=== PATIENT | male | born 2000 | race Caucasian/White ===

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

== ENCOUNTER 2022-01-27 19:49 | Emergency (ER) | payer MEDICAID ==
[~2022-01-27] VITALS: Ht 190 cm; Wt 127.0 kg
[~2022-01-27 19:49] MED LIST changes: +CLIN-144 PO; -CLIN300C11 PO
--- NOTE | 2022-01-27 20:04 | ED Upper Extremity ---
General Stated Complaint: CUT RIGHT MIDDLE FINGER Source: patient Exam Limitations: no limitations (LIO MARTINEZ) History of Present Illness Date Seen by Provider: Jan 27, 2022 Time Seen by Provider: 20:02 Initial Comments Patient is a 21-year-old male who presents ED with laceration to his right middle finger. This occurred an hour ago while picking up a bag of trash. [place] something sharp resulted in 1 cm laceration on the palmar side of the right middle finger. Normal active range of motion. Up-to-date on his tetanus. Denies of any decreased range of motion, numbness and tingling, fever, chills, cough or chest pain (LIO MARTINEZ) Allergies and Home Medications Allergies Coded Allergies: Penicillins (Unverified Allergy, Unknown, 11/28/18) Patient Home Medication List Home Medication List Reviewed: Yes (LIO MARTINEZ) Clindamycin HCl (Clindamycin HCl) 300 Mg Capsule, 300 MG PO QID Prescribed by: CRISELDA AGEE on 01/19/19 2235 Ibuprofen (Ibu) 600 Mg Tablet, 600 MG PO Q6H PRN for PAIN-MILD Prescribed by: KUN OCAMPO on 12/01/18 1007 Oxcarbazepine (Trileptal) 600 Mg Tablet, 600 MG PO BID, (Reported) Entered as Reported by: NAVID DIAZ on 11/28/18 0853 Review of Systems Constitutional: No chills, No diaphoresis, No malaise, No weakness EENTM: No ear pain, No blurred vision, No double vision Respiratory: No cough, No dyspnea on exertion, No short of breath Cardiovascular: No chest pain, No edema Gastrointestinal: No abdominal pain, No diarrhea, No nausea, No vomiting Genitourinary: No decreased output, No discharge Musculoskeletal: No back pain, No joint pain Skin: change in color, other (figner laceration) (LIO MARTINEZ) All Other Systems Reviewed Negative Unless Noted: Yes (LIO MARTINEZ) Past Dzacsay-Jyfdhn-Zexnec Hx Immunizations Up To Date PED Vaccines UTD: Yes (LIO MARTINEZ) Seasonal Allergies Seasonal Allergies: No (LIO MARTINEZ) Past Medical History Surgeries: Yes Gallbladder Respiratory: No Cardiac: No Neurological: No Reproductive Disorders: No Sexually Transmitted Disease: No HIV/AIDS: No Genitourinary: No Gastrointestinal: No Musculoskeletal: No Endocrine: No HEENT: No Cancer: No Psychosocial: Yes ADD/ADHD, ODD Integumentary: No Eczema Blood Disorders: No Adverse Reaction/Blood Tranf: No (LIO MARTINEZ) Family Medical History Heart Disease, Hypertension (LIO MARTINEZ) Physical Exam Vital Signs Vital Signs - First Documented 01/27/22 20:02 Temp 37.0 Pulse 88 Resp 20 B/P (MAP) 141/95 (110) Pulse Ox 98 O2 Delivery Room Air (PADMINI,LUIS K DO) Vital Signs Capillary Refill : (LIO MARTINEZ) Height, Weight, BMI Height: 6'2.00" Weight: 294lbs. 10.0oz. 133.827152oy; 40.00 BMI Method:Stated General Appearance: WD/WN, no apparent distress HEENT: PERRL/EOMI, normal ENT inspection, TMs normal, pharynx normal Neck: non-tender, full range of motion, supple, normal inspection Cardiovascular: regular rate, rhythm, no edema, no gallop, no JVD Respiratory: chest non-tender, lungs clear, normal breath sounds Gastrointestinal: normal bowel sounds, non tender, soft, no organomegaly Back: normal inspection, no CVA tenderness, no vertebral tenderness Shoulder: normal inspection Elbow/Forearm: normal inspection, non-tender, no evidence of injury Wrist: Yes normal inspection, Yes non-tender, Yes no evidence of injury, Yes normal ROM Hand: Right, laceration (1 cm laceration on the dorsum side of the right middle finger. 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, no motor/sensory deficits, alert, normal mood/affect, oriented x 3 Skin: other (1 cm laceration to the right dorsum middle finger.) (LIO MARTINEZ) Procedures/Interventions Wound Location: Upper Extremities Other Wound Location right middle finger Wound Length (cm): 1 Wound's Depth, Shape: superficial, sub Q Wound Explored: clean Irrigated w/ Saline (ccs): 200 Betadine Prep?: Yes Anesthesia: 1% Lidocaine Volume Anesthetic (ccs): 2 Suture: Ethlion Suture Size: 5-0 Number of Sutures: 4 Layer Closure?: 1 Number Deep Layer Sutures: 1 (LIO MARTINEZ) Progress/Results/Core Measures Results/Orders Vital Signs/I&O 01/27/22 01/27/22 20:02 20:22 Temp 37.0 37.0 Pulse 88 88 Resp 20 20 B/P (MAP) 141/95 (110) 141/95 Pulse Ox 98 98 O2 Delivery Room Air Room Air (LUIS WASHINGTON DO) Departure Communication (PCP) Recommend removing sutures in 10 days. 4 Ethilon sutures were placed in ED. Procedure documented note. Up-to-date on his tetanus. Normal active range of motion without any tendon or muscular involvement. Discussed wound care with Neosporin topical daily. Provided splint for comfort. If any worsening symptoms such as redness, swelling to return back to ED. (LIO MARTINEZ) Impression Primary Impression: Finger laceration Disposition: 01 HOME, SELF-CARE Condition: Stable Departure-Patient Inst. Decision time for Depature: 20:17 (LIO MARTINEZ) Referrals: [facility] (PCP/Family) Primary Care Physician Patient Instructions: Laceration Repair With Stitches ED Add. Discharge Instructions: Remove sutures in 10 days. Recommend Neosporin topical to prevent infection. Tylenol ibuprofen for pain. ATTENDING PHYSICIAN NOTE: I WAS PHYSICALLY PRESENT ER PHYSICIAN, BUT I WAS NOT INVOLVED IN ANY DECISION MAKING OR ANY CARE OF THIS PT, AND I AM NOT COLLABORATING PHYSICIAN. (LUIS WASHINGTON DO) LIO MARTINEZ Jan 27, 2022 20:04 LUIS WASHINGTON DO Jan 28, 2022 02:05
[2022-01-27 20:22] VITALS: BP 141/95
== END 2022-01-27 20:23 | disposition home or self-care (01) ==
LOC: EDUNIT# 19:49 → ER 19:52
DX: S61.212A Laceration without foreign body of right middle finger without damage to nail, initial encounter (principal); W26.9XXA Contact with unspecified sharp object(s), initial encounter
CPT/HCPCS: 99282

== ENCOUNTER 2022-02-09 10:55 | Emergency (ER) | payer MEDICAID | END 2022-02-09 11:41 | disposition home or self-care (01) | LOC: EDUNIT# 10:55 → ER 10:56 | DX: Z48.02 Encounter for removal of sutures (principal) ==

== ENCOUNTER 2022-12-23 19:30 | Emergency (ER) | payer MEDICAID ==
[~2022-12-23] VITALS: Ht 193 cm; Wt 131.5 kg
[2022-12-23] MEDS ORDERED: IBUPROFEN 800 MG (MOTRIN) TAB PO ONE (19:45)
[2022-12-23] MEDS ORDERED: LACTATED RINGERS 1,000 ML IV SCH ×2 (19:45→20:45)
[2022-12-23 19:52] LABS: BASOPHILS # (AUTO) 0.1 10^3/uL (0.0-0.1); BASOPHILS % (AUTO) 1 % (0-10); EOSINOPHILS # (AUTO) 0.3 10^3/uL (0.0-0.3); EOSINOPHILS % (AUTO) 3 % (0-10); HEMATOCRIT 49 % (40-54); HEMOGLOBIN 16.6 g/dL (13.3-17.7); LYMPHOCYTES % (AUTO) 10 % (12-44); MEAN CORPUSCULAR HEMOGLOBIN 28 pg (25-34); MEAN CORPUSCULAR HGB CONC 34 g/dL (32-36); MEAN CORPUSCULAR VOLUME 82 fL (80-99); MEAN PLATELET VOLUME 9.1 fL (9.0-12.2); MONOCYTES # (AUTO) 1.1 10^3/uL (0.0-1.0); MONOCYTES % (AUTO) 10 % (0-12); NEUTROPHILS # (AUTO) 8.1 10^3/uL (1.8-7.8); NEUTROPHILS % (AUTO) 76 % (42-75); PLATELET COUNT 301 10^3/uL (130-400); WHITE BLOOD COUNT 10.6 10^3/uL (4.3-11.0)
[2022-12-23 20:04] LABS: CLARITY,URINE CLEAR; COLOR,URINE YELLOW; GLUCOSE, URINE (UA) NEGATIVE (NEGATIVE); KETONES,URINE TRACE (NEGATIVE); LEUKOCYTE ESTERASE ,URINE 1+ (NEGATIVE); NITRITE,URINE NEGATIVE (NEGATIVE); PROTEIN,URINE 1+ (NEGATIVE)
[2022-12-23 20:05] LABS: BILIRUBIN,URINE 1+ (NEGATIVE)
[2022-12-23 20:07] LABS: BACTERIA,URINE FEW /HPF; RBC,URINE RARE /HPF
[2022-12-23 20:16] LABS: ALANINE AMINOTRANSFERASE 73 U/L (0-55); ALBUMIN 4.8 GM/DL (3.2-4.5); ALKALINE PHOSPHATASE 82 U/L (40-136); BILIRUBIN,TOTAL 1.6 MG/DL (0.1-1.0); BUN/CREATININE RATIO 8; CALCIUM 10.1 MG/DL (8.5-10.1); CARBON DIOXIDE 24 MMOL/L (21-32); CHLORIDE 101 MMOL/L (98-107); CREATININE SERUM 1.26 MG/DL (0.60-1.30); GFR ESTIMATED 83; GLUCOSE 92 MG/DL (70-105); POTASSIUM 3.9 MMOL/L (3.6-5.0); SODIUM 136 MMOL/L (135-145)
--- NOTE | 2022-12-23 20:25 | ED GU-Female ---
General Chief Complaint: - Reproductive Stated Complaint: LOW BACK PAIN/DEHYDRATED Nursing Triage Note: PT AMB TO FT 1 W C/O BILAT FLANK PAIN, LOWER ABD PAIN, BURNING W URINATION, DECREASED URINATION, AND DARK URINE X2-3 DAYS. PT A&OX4. Source: patient Exam Limitations: no limitations History of Present Illness Date Seen by Provider: Dec 23, 2022 Time Seen by Provider: 20:00 Initial Comments To ER by private vehicle with reports of bilateral low back pain for 2 to 3 days, urinary burning and frequency as well as decreased urination in addition to dark urine. He has had this happen a couple of times before and states it was related to dehydration. He also has some aching in both anterior thighs. No fevers or chills. He has been walking a bit more lately but otherwise no unusual activity level. No cough no fevers. Intermittent suprapubic abdominal discomfort. He states he drinks 2 to [address] Pepper a day and minimal water. Timing/Duration: other (3 days ago) Severity/Quality: moderate Location: unknown Radiation: none Activities at Onset: none Prior Genitourinary Problems: none Associated Symptoms: dysuria Allergies and Home Medications Allergies Coded Allergies: Penicillins (Unverified Allergy, Unknown, 11/28/18) Patient Home Medication List Home Medication List Reviewed: Yes Clindamycin HCl (Clindamycin HCl) 300 Mg Capsule, 300 MG PO QID Prescribed by: CRISELDA AGEE on 01/19/19 2235 Ibuprofen (Ibu) 600 Mg Tablet, 600 MG PO Q6H PRN for PAIN-MILD Prescribed by: KUN OCAMPO on 12/01/18 1007 Oxcarbazepine (Trileptal) 600 Mg Tablet, 600 MG PO BID, (Reported) Entered as Reported by: NAVID DIAZ on 11/28/18 0853 Review of Systems Review of Systems Constitutional: see HPI; No chills EENTM: see HPI Respiratory: no symptoms reported Cardiovascular: no symptoms reported Genitourinary: see HPI, flank pain Musculoskeletal: no symptoms reported Skin: no symptoms reported Endocrine: No Symptoms Reported Past Xdcvhyz-Tsxopl-Sbhuyb Hx Patient Social History Tobacco Use?: No Use of E-Cig and/or Vaping dev: No Substance use?: Yes Substance type: Marijuana Alcohol Use?: No Immunizations Up To Date PED Vaccines UTD: Yes First/Initial COVID19 Vaccinat: N/A Second COVID19 Vaccination Vidal: N/A Third COVID19 Vaccination Date: N/A Seasonal Allergies Seasonal Allergies: No Past Medical History Surgeries: Yes Gallbladder Respiratory: No Cardiac: No Neurological: No Reproductive Disorders: No Sexually Transmitted Disease: No HIV/AIDS: No Genitourinary: No Gastrointestinal: No Musculoskeletal: No Endocrine: No HEENT: No Cancer: No Psychosocial: Yes ADD/ADHD, ODD Integumentary: No Eczema Blood Disorders: No Adverse Reaction/Blood Tranf: No Family Medical History Heart Disease, Hypertension Physical Exam Vital Signs Vital Signs - First Documented 12/23/22 19:34 Temp 38.3 Pulse 115 Resp 20 B/P (MAP) 152/104 (120) Pulse Ox 97 O2 Delivery Room Air Capillary Refill : Less Than 3 Seconds Height, Weight, BMI Height: 6'2.00" Weight: 294lbs. 10.0oz. 133.456904xp; 35.00 BMI Method:Stated General Appearance: WD/WN, no apparent distress HEENT: PERRL/EOMI, normal ENT inspection Neck: non-tender, full range of motion Respiratory: normal breath sounds, no respiratory distress, no accessory muscle use Gastrointestinal: normal bowel sounds, non tender, soft Extremities: normal range of motion, non-tender Neurologic/Psychiatric: alert, normal mood/affect, oriented x 3 Skin: normal color, warm/dry Procedures/Interventions Suture Size: 5-0 Progress/Results/Core Measures Suspected Sepsis SIRS Temperature: Pulse: 115 Respiratory Rate: 20 Laboratory Tests 12/23/22 19:45: White Blood Count 10.6 Blood Pressure 152 /104 Mean: 120 Laboratory Tests 12/23/22 19:45: Creatinine 1.26, Platelet Count 301, Total Bilirubin 1.6H Results/Orders Lab Results Laboratory Tests Test 12/23/22 19:05 12/23/22 19:45 12/23/22 19:48 Range/Units Total Creatine Kinase 143 30-200 U/L Myoglobin 68.8 10.0-92.0 NG/ML White Blood Count 10.6 4.3-11.0 10^3/uL Red Blood Count 5.97 H 4.30-5.52 10^6/uL Hemoglobin 16.6 13.3-17.7 g/dL Hematocrit 49 40-54 % Mean Corpuscular Volume 82 80-99 fL Mean Corpuscular Hemoglobin 28 25-34 pg Mean Corpuscular Hemoglobin Concent 34 32-36 g/dL Red Cell Distribution Width 12.3 10.0-14.5 % Platelet Count 301 130-400 10^3/uL Mean Platelet Volume 9.1 9.0-12.2 fL Immature Granulocyte % (Auto) 1 % Neutrophils (%) (Auto) 76 H 42-75 % Lymphocytes (%) (Auto) 10 L 12-44 % Monocytes (%) (Auto) 10 0-12 % Eosinophils (%) (Auto) 3 0-10 % Basophils (%) (Auto) 1 0-10 % Neutrophils # (Auto) 8.1 H 1.8-7.8 10^3/uL Lymphocytes # (Auto) 1.0 1.0-4.0 10^3/uL Monocytes # (Auto) 1.1 H 0.0-1.0 10^3/uL Eosinophils # (Auto) 0.3 0.0-0.3 10^3/uL Basophils # (Auto) 0.1 0.0-0.1 10^3/uL Immature Granulocyte # (Auto) 0.1 0.0-0.1 10^3/uL Sodium Level 136 135-145 MMOL/L Potassium Level 3.9 3.6-5.0 MMOL/L Chloride Level 101 98-107 MMOL/L Carbon Dioxide Level 24 21-32 MMOL/L Anion Gap 11 5-14 MMOL/L Blood Urea Nitrogen 10 7-18 MG/DL Creatinine 1.26 0.60-1.30 MG/DL Estimat Glomerular Filtration Rate 83 BUN/Creatinine Ratio 8 Glucose Level 92 70-105 MG/DL Calcium Level 10.1 8.5-10.1 MG/DL Corrected Calcium 8.5-10.1 MG/DL Total Bilirubin 1.6 H 0.1-1.0 MG/DL Aspartate Amino Transf (AST/SGOT) 40 H 5-34 U/L Alanine Aminotransferase (ALT/SGPT) 73 H 0-55 U/L Alkaline Phosphatase 82 40-136 U/L Total Protein 9.0 H 6.4-8.2 GM/DL Albumin 4.8 H 3.2-4.5 GM/DL Urine Color YELLOW Urine Clarity CLEAR Urine pH 6.0 5-9 Urine Specific Gibson 1.020 1.016-1.022 Urine Protein 1+ H NEGATIVE Urine Glucose (UA) NEGATIVE NEGATIVE Urine Ketones TRACE H NEGATIVE Urine Nitrite NEGATIVE NEGATIVE Urine Bilirubin 1+ H NEGATIVE Urine Urobilinogen 1.0 < = 1.0 MG/DL Urine Leukocyte Esterase 1+ H NEGATIVE Urine RBC (Auto) NEGATIVE NEGATIVE Urine RBC RARE /HPF Urine WBC 10-25 H /HPF Urine Crystals NONE /LPF Urine Bacteria FEW H /HPF Urine Casts NONE /LPF Urine Mucus LARGE H /LPF Urine Culture Indicated YES My Orders Orders - LISA JAIMES APRN Cbc With Automated Diff (12/23/22 19:41) Comprehensive Metabolic Panel (12/23/22 19:41) Ua Culture If Indicated (12/23/22 19:41) Ed Iv/Invasive Line Start (12/23/22 19:41) Ibuprofen Tablet (Motrin Tablet) (12/23/22 19:45) Lactated Ringers (Lr 1000 Ml Iv Solution (12/23/22 19:45) Urine Culture (12/23/22 19:48) Creatine Kinase (12/23/22 20:37) Myoglobin Serum (12/23/22 20:37) Lactated Ringers (Lr 1000 Ml Iv Solution (12/23/22 20:45) Medications Given in ED Current Medications Medications Dose Ordered Sig/Julio Cesar Route Start Time Stop Time Status Last Admin Dose Admin Ibuprofen 800 mg ONCE ONCE PO 12/23/22 19:45 12/23/22 19:46 DC 12/23/22 19:51 800 MG Vital Signs/I&O 12/23/22 12/23/22 19:34 19:51 Temp 38.3 38.3 Pulse 115 Resp 20 B/P (MAP) 152/104 (120) Pulse Ox 97 O2 Delivery Room Air Capillary Refill : Less Than 3 Seconds Blood Pressure Mean: 120 Departure Communication (Admissions) CBC reviewed and is normal. Chemistry reviewed and shows a slightly elevated total bilirubin at 1.6 as well as slightly elevated AST and ALT though this is a reduction from prior measurements. Renal function is normal. Impression Primary Impression: Urinary tract infection Additional Impression: Elevated LFTs Disposition: 01 HOME, SELF-CARE Condition: Stable Departure-Patient Inst. Decision time for Depature: 21:10 Referrals: [facility] [place] (PCP/Family) Primary Care Physician Patient Instructions: Urinary Tract Infection, Adult (DC) Add. Discharge Instructions: 1. Increase water intake 2. Take the antibiotics as directed starting tomorrow. Return to ER for any concerns. Follow-up with your doctor next week for repeat liver function tests All discharge instructions reviewed with patient and/or family. Voiced understanding. Scripts Sulfamethoxazole/Trimethoprim (Bactrim Ds Tablet) 800 Mg-160 Mg Tablet 1 EACH PO BID, #14 TAB Prov: LISA JAIMES APRN 12/23/22 LISA JAIMES APRN Dec 23, 2022 20:25
[2022-12-23] MEDS ORDERED: SULF-221 PO (21:14)
[2022-12-23] MEDS ORDERED: cefTRIAXone IV/IM 1,000 MG in NS (IVPB) 50 ML IV ONE (21:15)
[2022-12-23 21:53] VITALS: BP 121/76
== END 2022-12-23 21:53 | disposition home or self-care (01) ==
LOC: EDUNIT# 19:30 → ER 19:32
DX: N39.0 Urinary tract infection, site not specified (principal); R79.89 Other specified abnormal findings of blood chemistry; Z88.0 Allergy status to penicillin; Z88.2 Allergy status to sulfonamides; Z28.310 Unvaccinated for COVID-19
CPT/HCPCS: 36415; 80053; 81000; 82550; 83874; 85025; 87088; 87491; 87591